=== PATIENT | male | born 1935 | race Caucasian/White ===

== ENCOUNTER 2021-05-04 17:54 | Inpatient (IN) | payer OTHER, MEDICARE ==
[~2021-05-04 17:54] MED LIST: Iopamidol-370 76% 500 ML 1 ML ONE
[2021-05-04 18:32] LABS: #Eosinphils 0.1 thou/uL (0.0-0.7); #Lymphocytes 2.2 thou/uL (1.20-3.40); #Monocytes 0.6 thou/uL (0.11-0.59); #Neutrophils 3.7 thou/uL (1.40-6.50); %Basophils 0.6 % (0.0-1.0); %Lymphocytes 32.9 % (21.0-51.0); %Monocytes 9.4 % (0.0-10.0); %Neutrophils 55.1 % (42.0-75.0); Hemoglobin 11.6 g/dL (14.0-18.0); Mean Corpuscular HGB CONC 34.9 g/dL (32.0-36.0); Mean Corpuscular Hemoglobin 33.4 pg (27.0-31.0); Mean Corpuscular Volume 95.8 fL (78.0-98.0); Platelet Count 274 thou/uL (130-400); RBC Distribution Width 12.8 % (11.5-14.5); Red Blood Cell (RBC) Count 3.48 mill/uL (4.70-6.10); White Blood Cell (WBC) Count 6.6 thou/uL (4.8-10.8)
[2021-05-04 18:58] LABS: ALT (SGPT) 15 U/L (8-55); AST (SGOT) 26 U/L (5-34); Albumin 3.9 g/dL (3.4-4.8); Alkaline Phosphatase 50 U/L (40-110); Anion Gap 17 mmol/L (10-20); BUN (Urea Nitrogen) 13 mg/dL (8.4-25.7); Bilirubin, Total 0.7 mg/dL (0.2-1.2); Calc. Creatinine Clearance 0 mL/min (70-130); Calcium 7.2 mg/dL (7.8-10.44); Carbon Dioxide 26 mmol/L (23-31); Chloride 101 mmol/L (98-107); Globulin 2.3 g/dL (2.4-3.5); Glucose 218 mg/dL (83-110); Protein, Total 6.2 g/dL (5.8-8.1); Sodium 141 mmol/L (136-145)
[2021-05-04 19:06] LABS: Potassium 2.9 mmol/L (3.5-5.1)
[2021-05-04 19:17] LABS: CKMB 1.3 ng/mL (0-6.6)
[2021-05-04] MEDS ORDERED: Potassium Chloride 20 MEQ TAB ONE (19:42)
[2021-05-04] MEDS ORDERED: Aspirin Chewable 81 MG TAB ONE (19:51)
[2021-05-04] MEDS ORDERED: Potassium Chloride 20 MEQ TAB PO SCH (20:00)
[2021-05-04] MEDS ORDERED: Pot Chloride/Pot Bicarb/Cit Ac 25 mEq Effervescent Tablet ONE ×2 (20:30)
[2021-05-04] MEDS ORDERED: Potassium Bicarbonate/Cit Ac 20 MEQ TAB PO SCH (20:45)
[2021-05-04 22:11] LABS: Troponin I 0.025 ng/mL (< 0.028)
[2021-05-04] MEDS ORDERED: Labetalol HCl 100 MG/20 ML VIAL SLOW IVP PRN (22:54)
[2021-05-04] MEDS ORDERED: Ondansetron PF 4 MG/2 ML Vial IVP PRN (22:54)
[2021-05-04] MEDS ORDERED: Acetaminophen 325 MG TAB PO PRN (22:54)
[2021-05-04] MEDS ORDERED: hydrALAZINE 20 MG/ML VIAL SLOW IVP PRN (22:54)
[2021-05-04] MEDS ORDERED: Dextrose 5% in Water 1,000 ML IV PRN (23:00)
[2021-05-04] MEDS ORDERED: Dextrose 50% Abboject 50 ML SYRINGE SLOW IVP PRN (23:00)
[2021-05-04] MEDS ORDERED: HumaLOG 300 UNITS/3 ML VIAL SC PRN (23:00)
[2021-05-05 01:22] LABS: Troponin I 0.026 ng/mL (< 0.028)
[2021-05-05 04:22] VITALS: BMI 23.1
[2021-05-05 05:17] LABS: #Eosinphils 0.1 thou/uL (0.0-0.7); #Lymphocytes 1.8 thou/uL (1.20-3.40); #Monocytes 0.5 thou/uL (0.11-0.59); #Neutrophils 3.3 thou/uL (1.40-6.50); %Basophils 0.5 % (0.0-1.0); %Eosinophils 2.4 % (0.0-10.0); %Lymphocytes 30.6 % (21.0-51.0); %Monocytes 8.9 % (0.0-10.0); %Neutrophils 57.6 % (42.0-75.0); Hemoglobin 10.8 g/dL (14.0-18.0); Mean Corpuscular HGB CONC 34.9 g/dL (32.0-36.0); Mean Corpuscular Hemoglobin 33.4 pg (27.0-31.0); Mean Corpuscular Volume 95.8 fL (78.0-98.0); Mean Platelet Volume 6.9 fL (7.4-10.4); Platelet Count 236 thou/uL (130-400); RBC Distribution Width 12.8 % (11.5-14.5); Red Blood Cell (RBC) Count 3.24 mill/uL (4.70-6.10); White Blood Cell (WBC) Count 5.8 thou/uL (4.8-10.8)
[2021-05-05 05:39] LABS: Anion Gap 15 mmol/L (10-20); BUN (Urea Nitrogen) 11 mg/dL (8.4-25.7); Calc. Creatinine Clearance 61 mL/min (70-130); Carbon Dioxide 27 mmol/L (23-31); Cardiac Risk 4.9 (Less than 4.5); Chloride 104 mmol/L (98-107); Cholesterol 157 mg/dl (< 200 Desired); Glucose 131 mg/dL (83-110); HDL Cholesterol 32 mg/dL (>60 Neg Risk); LDL Cholesterol, Calculated 82 mg/dL; Magnesium Less than 0.6 mg/dL (1.6-2.6); Sodium 143 mmol/L (136-145); Triglycerides 215 mg/dL (Less than 150)
[2021-05-05 05:40] LABS: Hemoglobin A1c 8.8 % (4.0-6.0)
[2021-05-05 05:42] LABS: Potassium 2.8 mmol/L (3.5-5.1)
[2021-05-05] MEDS ORDERED: Potassium Chloride 20 MEQ TAB PO SCH (06:15)
[2021-05-05] MEDS ORDERED: Magnesium Sulfate 4 GM in Sodium Chloride 0.9% 250 ML 250 ML IVPB SCH (06:30)
[2021-05-05] MEDS: Potassium Chloride 20 MEQ TAB PO SCH ×2 (07:40→11:59)
[2021-05-05] MEDS ORDERED: OXcarbazepine 300 MG TAB PO SCH (09:00)
[2021-05-05] MEDS: Famotidine 20 MG TAB PO SCH ×2 (09:21→20:25)
[2021-05-05] MEDS: Aspirin 81 mg Enteric Coated Tablet PO SCH (09:21)
[2021-05-05] MEDS: Lantus 1000 UNITS/10 ML VIAL SC SCH ×2 (09:42→20:26)
[2021-05-05] MEDS: Potassium Chloride 20 MEQ in Premix Bag 1 BAG IVPB SCH ×2 (10:42→12:40)
[2021-05-05 11:53] LABS: Anion Gap 13 mmol/L (10-20); BUN (Urea Nitrogen) 10 mg/dL (8.4-25.7); Calc. Creatinine Clearance 59 mL/min (70-130); Calcium 7.2 mg/dL (7.8-10.44); Carbon Dioxide 29 mmol/L (23-31); Chloride 107 mmol/L (98-107); Glucose 107 mg/dL (83-110); Magnesium 1.8 mg/dL (1.6-2.6); Potassium 3.5 mmol/L (3.5-5.1); Sodium 145 mmol/L (136-145)
[2021-05-05] MEDS: HumaLOG 300 UNITS/3 ML VIAL SC PRN (17:44)
[2021-05-05] MEDS: Atorvastatin Calcium 40 MG TAB PO SCH (20:23)
[2021-05-05] MEDS: OXcarbazepine 300 MG TAB PO SCH (20:24)
[2021-05-05] MEDS: Carvedilol 6.25 MG TAB PO SCH (20:24)
[2021-05-05] MEDS: Docusate 100 MG CAP PO SCH (20:37)
[2021-05-05] MEDS ORDERED: Apixaban 5 MG TAB PO SCH (21:00)
[2021-05-06 05:28] LABS: #Eosinphils 0.2 thou/uL (0.0-0.7); #Lymphocytes 1.4 thou/uL (1.20-3.40); #Monocytes 0.5 thou/uL (0.11-0.59); #Neutrophils 5.8 thou/uL (1.40-6.50); %Basophils 0.1 % (0.0-1.0); %Eosinophils 2.9 % (0.0-10.0); %Lymphocytes 17.2 % (21.0-51.0); %Monocytes 6.2 % (0.0-10.0); %Neutrophils 73.6 % (42.0-75.0); Hemoglobin 11.3 g/dL (14.0-18.0); Mean Corpuscular Hemoglobin 33.2 pg (27.0-31.0); Mean Corpuscular Volume 97.5 fL (78.0-98.0); Platelet Count 280 thou/uL (130-400); RBC Distribution Width 12.9 % (11.5-14.5); Red Blood Cell (RBC) Count 3.42 mill/uL (4.70-6.10); White Blood Cell (WBC) Count 7.9 thou/uL (4.8-10.8)
[2021-05-06 05:49] LABS: Anion Gap 12 mmol/L (10-20); BUN (Urea Nitrogen) 7 mg/dL (8.4-25.7); Calc. Creatinine Clearance 67 mL/min (70-130); Calcium 7.4 mg/dL (7.8-10.44); Carbon Dioxide 25 mmol/L (23-31); Chloride 109 mmol/L (98-107); Glucose 117 mg/dL (83-110); Magnesium 1.4 mg/dL (1.6-2.6); Potassium 3.5 mmol/L (3.5-5.1); Sodium 142 mmol/L (136-145)
[2021-05-06] MEDS: Famotidine 20 MG TAB PO SCH (09:49)
[2021-05-06] MEDS: Amlodipine 5 MG TAB PO SCH (09:49)
[2021-05-06] MEDS: Multivit, Therapeutic 1 TAB PO SCH (09:50)
[2021-05-06] MEDS: Glimepiride 4 MG TAB PO SCH (09:51)
[2021-05-06] MEDS: Aspirin 81 mg Enteric Coated Tablet PO SCH (09:51)
[2021-05-06] MEDS: Spironolactone 25 MG TAB PO SCH (09:51)
[2021-05-06] MEDS: Tamsulosin HCl 0.4 MG CAP PO SCH (09:51)
[2021-05-06] MEDS: Carvedilol 6.25 MG TAB PO SCH ×2 (09:51→22:21)
[2021-05-06] MEDS: Lantus 1000 UNITS/10 ML VIAL SC SCH ×2 (09:52→22:12)
[2021-05-06] MEDS: Fenofibrate Nanocrystallized 145 MG TAB PO SCH (09:52)
[2021-05-06] MEDS: Docusate 100 MG CAP PO SCH ×2 (09:55→22:21)
[2021-05-06] MEDS: OXcarbazepine 300 MG TAB PO SCH ×2 (10:01→22:22)
[2021-05-06] MEDS: HumaLOG 300 UNITS/3 ML VIAL SC PRN (12:11)
[2021-05-06] MEDS ORDERED: ALPRAZolam 0.25 MG TAB PO PRN (12:33)
[2021-05-06] MEDS ORDERED: Lorazepam 2 MG/ML VIAL ONE (12:39)
[2021-05-06] MEDS ORDERED: Lorazepam 2 MG/ML VIAL SLOW IVP SCH (12:45)
[2021-05-06] MEDS ORDERED: Haloperidol Lactate 5 MG/ML VIAL IM SCH (13:00)
[2021-05-06] MEDS ORDERED: Lisinopril 10 MG TAB PO SCH (15:15)
[2021-05-06] MEDS ORDERED: HumaLOG 300 UNITS/3 ML VIAL SC PRN (21:16)
[2021-05-06] MEDS ORDERED: Dextrose 5% in Water 1,000 ML IV PRN (21:16)
[2021-05-06] MEDS ORDERED: Dextrose 50% Abboject 50 ML SYRINGE SLOW IVP PRN (21:16)
[2021-05-06] MEDS: Atorvastatin Calcium 40 MG TAB PO SCH (22:20)
[2021-05-07 05:22] LABS: #Eosinphils 0.2 thou/uL (0.0-0.7); #Lymphocytes 1.2 thou/uL (1.20-3.40); #Monocytes 0.4 thou/uL (0.11-0.59); #Neutrophils 3.6 thou/uL (1.40-6.50); %Basophils 0.5 % (0.0-1.0); %Lymphocytes 22.9 % (21.0-51.0); %Monocytes 6.6 % (0.0-10.0); Hemoglobin 11.6 g/dL (14.0-18.0); Mean Corpuscular HGB CONC 35.4 g/dL (32.0-36.0); Mean Corpuscular Hemoglobin 34.3 pg (27.0-31.0); Mean Platelet Volume 6.8 fL (7.4-10.4); Platelet Count 270 thou/uL (130-400); RBC Distribution Width 12.8 % (11.5-14.5); Red Blood Cell (RBC) Count 3.38 mill/uL (4.70-6.10); White Blood Cell (WBC) Count 5.4 thou/uL (4.8-10.8)
[2021-05-07 05:45] LABS: Anion Gap 13 mmol/L (10-20); BUN (Urea Nitrogen) 6 mg/dL (8.4-25.7); Calc. Creatinine Clearance 77 mL/min (70-130); Calcium 7.5 mg/dL (7.8-10.44); Carbon Dioxide 22 mmol/L (23-31); Chloride 110 mmol/L (98-107); Glucose 87 mg/dL (83-110); Magnesium 1.3 mg/dL (1.6-2.6); Potassium 3.4 mmol/L (3.5-5.1); Sodium 142 mmol/L (136-145)
[2021-05-07] MEDS: Lisinopril 10 MG TAB PO SCH (08:36)
[2021-05-07] MEDS: Fenofibrate Nanocrystallized 145 MG TAB PO SCH (08:36)
[2021-05-07] MEDS: OXcarbazepine 300 MG TAB PO SCH ×2 (08:36→20:40)
[2021-05-07] MEDS: Amlodipine 5 MG TAB PO SCH (08:36)
[2021-05-07] MEDS: Aspirin 81 mg Enteric Coated Tablet PO SCH (08:37)
[2021-05-07] MEDS: Multivit, Therapeutic 1 TAB PO SCH (08:37)
[2021-05-07] MEDS: Glimepiride 4 MG TAB PO SCH ×2 (08:37→08:55)
[2021-05-07] MEDS: Tamsulosin HCl 0.4 MG CAP PO SCH (08:38)
[2021-05-07] MEDS: Carvedilol 6.25 MG TAB PO SCH ×2 (08:38→20:40)
[2021-05-07] MEDS: Docusate 100 MG CAP PO SCH ×2 (08:38→20:40)
[2021-05-07] MEDS: Lantus 1000 UNITS/10 ML VIAL SC SCH ×2 (08:42→21:01)
[2021-05-07] MEDS: Spironolactone 25 MG TAB PO SCH (08:44)
[2021-05-07] MEDS ORDERED: Calcium Gluc 4.6 MEQ/10 ML (100 MG/ML) SLOW IVP SCH (12:00)
[2021-05-07] MEDS ORDERED: Potassium Chloride 20 MEQ TAB PO SCH (12:00)
[2021-05-07] MEDS: HumaLOG 300 UNITS/3 ML VIAL SC PRN ×2 (12:10→17:04)
[2021-05-07] MEDS: Magnesium 2 GM/50 ML 2 GM in Premix Bag 1 BAG IVPB SCH ×2 (12:11→15:06)
[2021-05-07] MEDS ORDERED: Haloperidol Lactate 5 MG/ML VIAL IM PRN (17:51)
[2021-05-07] MEDS: Atorvastatin Calcium 40 MG TAB PO SCH (20:39)
[2021-05-07] MEDS ORDERED: traZODone HCl 50 MG TAB PO SCH (21:00)
[2021-05-08] MEDS: Fenofibrate Nanocrystallized 145 MG TAB PO SCH (08:19)
[2021-05-08] MEDS: Glimepiride 4 MG TAB PO SCH (08:19)
[2021-05-08] MEDS: Docusate 100 MG CAP PO SCH (08:20)
[2021-05-08] MEDS: Multivit, Therapeutic 1 TAB PO SCH (08:20)
[2021-05-08] MEDS: Tamsulosin HCl 0.4 MG CAP PO SCH (08:20)
[2021-05-08] MEDS: Carvedilol 6.25 MG TAB PO SCH (08:21)
[2021-05-08] MEDS: Spironolactone 25 MG TAB PO SCH (08:21)
[2021-05-08] MEDS: Amlodipine 5 MG TAB PO SCH (08:21)
[2021-05-08] MEDS: Aspirin 81 mg Enteric Coated Tablet PO SCH (08:21)
[2021-05-08] MEDS: Lisinopril 10 MG TAB PO SCH (08:21)
[2021-05-08] MEDS: Lantus 1000 UNITS/10 ML VIAL SC SCH ×2 (08:24→08:33)
[2021-05-08] MEDS: OXcarbazepine 300 MG TAB PO SCH (08:27)
[2021-05-08] MEDS: HumaLOG 300 UNITS/3 ML VIAL SC PRN (11:21)
[2021-05-08 11:47] VITALS: BP 188/79; TEMP 98.1
== END 2021-05-08 16:29 | disposition home health service (06) | DRG 65 ==
LOC: ERS 17:54 → 2SE 21:23 → OBSVTOIN 05-05 10:17
PROVIDERS: ADMIT Internal Medicine; ATTEND Internal Medicine
PROC: 4A10X4Z Monitoring of Central Nervous Electrical Activity, External Approach (ICD-10-PCS; principal; 2021-05-05)
DX: I63.9 Cerebral infarction, unspecified (principal); I16.1 Hypertensive emergency; I10 Essential (primary) hypertension; G30.9 Alzheimer's disease, unspecified; F02.80 Dementia in other diseases classified elsewhere, unspecified severity, without behavioral disturbance, psychotic disturbance, mood disturbance, and anxiety; E11.9 Type 2 diabetes mellitus without complications; I48.0 Paroxysmal atrial fibrillation; G40.909 Epilepsy, unspecified, not intractable, without status epilepticus; E87.6 Hypokalemia; R77.8 Other specified abnormalities of plasma proteins; W19.XXXA Unspecified fall, initial encounter; E83.42 Hypomagnesemia; E83.51 Hypocalcemia; Z79.4 Long term (current) use of insulin; Z88.0 Allergy status to penicillin; Z79.82 Long term (current) use of aspirin; Y92.89 Other specified places as the place of occurrence of the external cause; Z79.899 Other long term (current) drug therapy; Z88.8 Allergy status to other drugs, medicaments and biological substances
CPT/HCPCS: 36415; 36416; 70450; 70496; 70498; 72125; 74230; 80048; 80053; 80061; 82553; 83036; 83735; 84484; 85025; 93005; 93306; 95712; 95819; 95957; 96374; 96375; G0378; J0360; J1630; J1815; J2001; J2060; J3475; J3480; J7050; Q9967

== ENCOUNTER 2021-06-01 18:55 | Inpatient (IN) | payer MEDICARE ==
[2021-06-01] MEDS ORDERED: Ondansetron ODT 4 MG TAB ONE (19:13)
[2021-06-01] MEDS ORDERED: Morphine 4 MG/ML VIAL ONE (19:13)
[2021-06-01] MEDS ORDERED: hydrALAZINE 20 MG/ML VIAL ONE (19:13)
[2021-06-01 19:34] LABS: #Basophils 0.1 thou/uL (0.0-0.2); #Lymphocytes 1.8 thou/uL (1.20-3.40); #Monocytes 0.6 thou/uL (0.11-0.59); #Neutrophils 4.8 thou/uL (1.40-6.50); %Basophils 0.8 % (0.0-1.0); %Eosinophils 0.5 % (0.0-10.0); %Lymphocytes 24.6 % (21.0-51.0); %Monocytes 7.7 % (0.0-10.0); %Neutrophils 66.4 % (42.0-75.0); Hemoglobin 12.4 g/dL (14.0-18.0); Mean Corpuscular HGB CONC 34.9 g/dL (32.0-36.0); Mean Corpuscular Hemoglobin 33.7 pg (27.0-31.0); Mean Corpuscular Volume 96.6 fL (78.0-98.0); Mean Platelet Volume 7.1 fL (7.4-10.4); Platelet Count 253 thou/uL (130-400); RBC Distribution Width 13.1 % (11.5-14.5); Red Blood Cell (RBC) Count 3.68 mill/uL (4.70-6.10); White Blood Cell (WBC) Count 7.3 thou/uL (4.8-10.8)
[2021-06-01 19:54] LABS: ALT (SGPT) 12 U/L (8-55); AST (SGOT) 24 U/L (5-34); Albumin 4.2 g/dL (3.4-4.8); Alkaline Phosphatase 44 U/L (40-110); Anion Gap 16 mmol/L (10-20); BUN (Urea Nitrogen) 10 mg/dL (8.4-25.7); Bilirubin, Total 0.7 mg/dL (0.2-1.2); Calc. Creatinine Clearance 0 mL/min (70-130); Calcium 7.5 mg/dL (7.8-10.44); Carbon Dioxide 22 mmol/L (23-31); Chloride 107 mmol/L (98-107); Globulin 2.2 g/dL (2.4-3.5); Glucose 154 mg/dL (83-110); Lipase 12 U/L (8-78); Protein, Total 6.4 g/dL (5.8-8.1); Sodium 142 mmol/L (136-145)
[2021-06-01 20:10] LABS: Potassium 2.9 mmol/L (3.5-5.1)
[2021-06-01 20:15] LABS: CKMB 1.7 ng/mL (0-6.6)
[2021-06-01] MEDS ORDERED: Aspirin Chewable 81 MG TAB ONE (20:37)
[2021-06-01] MEDS ORDERED: Ondansetron PF 4 MG/2 ML Vial ONE (20:43)
[2021-06-01] MEDS ORDERED: Potassium Chloride 40 MEQ in Sodium Chloride 0.9% 250 ML 250 ML IVPB SCH (20:45)
[2021-06-01 22:34] LABS: Bacteria/HPF None Seen HPF (None Seen); Bilirubin Negative (Negative); Blood, Urine Negative (Negative); Clarity Clear (Clear); Glucose, Urine (Dipstick) 50 mg/dL (Negative); Ketone, Urine Negative (Negative); Leukocyte Negative Leu/uL (Negative); Nitrite Negative (Negative); Protein, Urine (Dipstick) 70 mg/dL (Neg-Trace); RBC/HPF 0-3 HPF (0-3); Specific Gravity, Urine 1.023 (1.002-1.036); Squamous Epithelial None Seen HPF (0-3); Urobilinogen Normal mg/dL (Less than 2); WBC/HPF 0-3 HPF (0-3); pH, Urine 8.5 (5.0-9.0)
[2021-06-02] MEDS ORDERED: Dextrose 50% Abboject 50 ML SYRINGE SLOW IVP PRN (00:16)
[2021-06-02] MEDS ORDERED: Dextrose 5% in Water 1,000 ML IV PRN (00:16)
[2021-06-02] MEDS ORDERED: HumaLOG 300 UNITS/3 ML VIAL SC PRN ×2 (00:16)
[2021-06-02] MEDS ORDERED: Electrolyte Replacement Protocol 1 EACH FS SCH (00:30)
[2021-06-02] MEDS ORDERED: Morphine 2 MG/ML VIAL ONE (00:35)
[2021-06-02 00:42] LABS: SARS-CoV-2 NAA Rapid Test Not Detected (NotDetected)
[2021-06-02 01:05] VITALS: BMI 29.0
[2021-06-02] MEDS ORDERED: Labetalol HCl 100 MG/20 ML VIAL ONE (02:13)
[2021-06-02] MEDS: Labetalol HCl 100 MG/20 ML VIAL SLOW IVP SCH ×2 (02:17→20:51)
[2021-06-02] MEDS ORDERED: Magnesium Sulfate 4 GM in Sodium Chloride 0.9% 250 ML 250 ML IVPB SCH ×2 (02:30→08:30)
[2021-06-02] MEDS ORDERED: cefTRIAXone\\ROCEPHIN 1 GM VIAL ONE (02:41)
[2021-06-02] MEDS: cefTRIAXone\\ROCEPHIN 1 GM in Sodium Chloride 0.9% 100 ML IVPB SCH (02:49)
[2021-06-02] MEDS: Sodium Chloride 0.9% 1,000 ML IV SCH ×3 (02:50→22:28)
[2021-06-02] MEDS ORDERED: metroNIDAZOLE 500 MG/100 ML BAG ONE ×2 (03:01→09:08)
[2021-06-02] MEDS: metroNIDAZOLE 500 MG in Premix Bag 1 BAG IVPB SCH ×3 (03:09→22:16)
[2021-06-02] MEDS ORDERED: hydrALAZINE 20 MG/ML VIAL ONE ×2 (06:48→11:32)
[2021-06-02] MEDS: hydrALAZINE 20 MG/ML VIAL SLOW IVP PRN ×3 (07:13→16:17)
[2021-06-02 07:27] LABS: Troponin I 0.055 ng/mL (< 0.028)
[2021-06-02] MEDS ORDERED: Morphine 4 MG/ML VIAL ONE (07:39)
[2021-06-02] MEDS: Morphine 2 MG/ML VIAL SLOW IVP PRN (07:48)
[2021-06-02] MEDS ORDERED: Ondansetron PF 4 MG/2 ML Vial IVP PRN (08:30)
[2021-06-02] MEDS ORDERED: Ondansetron ODT 4 MG TAB PO PRN (08:30)
[2021-06-02] MEDS ORDERED: Enoxaparin Sodium 30 MG/0.3 ML SYRINGE ONE (08:34)
[2021-06-02 08:38] LABS: #Lymphocytes 1.3 thou/uL (1.20-3.40); #Monocytes 1.1 thou/uL (0.11-0.59); #Neutrophils 11.3 thou/uL (1.40-6.50); %Basophils 0.2 % (0.0-1.0); %Eosinophils 0.3 % (0.0-10.0); %Lymphocytes 9.8 % (21.0-51.0); %Monocytes 7.9 % (0.0-10.0); %Neutrophils 81.9 % (42.0-75.0); Hemoglobin 12.2 g/dL (14.0-18.0); Mean Corpuscular HGB CONC 34.3 g/dL (32.0-36.0); Mean Corpuscular Hemoglobin 33.1 pg (27.0-31.0); Mean Corpuscular Volume 96.4 fL (78.0-98.0); Mean Platelet Volume 6.8 fL (7.4-10.4); Platelet Count 279 thou/uL (130-400); RBC Distribution Width 13.3 % (11.5-14.5); Red Blood Cell (RBC) Count 3.68 mill/uL (4.70-6.10); White Blood Cell (WBC) Count 13.8 thou/uL (4.8-10.8)
[2021-06-02 08:59] LABS: Anion Gap 16 mmol/L (10-20); BUN (Urea Nitrogen) 9 mg/dL (8.4-25.7); Calc. Creatinine Clearance 68 mL/min (70-130); Calcium 7.4 mg/dL (7.8-10.44); Carbon Dioxide 19 mmol/L (23-31); Chloride 110 mmol/L (98-107); Glucose 152 mg/dL (83-110); Magnesium 1.5 mg/dL (1.6-2.6); Sodium 142 mmol/L (136-145)
[2021-06-02] MEDS ORDERED: Nitroglycerin 2% Ointment 1 INCH/1 GM Packet ONE (08:59)
[2021-06-02] MEDS ORDERED: Ondansetron PF 4 MG/2 ML Vial ONE (08:59)
[2021-06-02] MEDS ORDERED: Enoxaparin Sodium 30 MG/0.3 ML SYRINGE SC SCH (09:00)
[2021-06-02 09:03] LABS: Phosphorus 1.2 mg/dL (2.3-4.7)
[2021-06-02] MEDS ORDERED: Potassium Phosphate 22 MMOL in Sodium Chloride 0.9% 250 ML 250 ML IVPB SCH ×2 (09:15→09:45)
[2021-06-02] MEDS ORDERED: Magnesium 2 GM/50 ML 2 GM in Premix Bag 1 BAG IVPB SCH (09:15)
[2021-06-02] MEDS ORDERED: Magnesium Sulfate 2 GM in Sodium Chloride 0.9% 250 ML 250 ML IVPB SCH (09:30)
[2021-06-02] MEDS ORDERED: Potassium Chloride 8 MEQ in Sodium Chloride 0.9% 100 ML IVPB SCH (09:30)
[2021-06-02] MEDS ORDERED: Potassium Phosphate 30 MMOL in Sodium Chloride 0.9% 250 ML 250 ML IVPB SCH (09:30)
[2021-06-02] MEDS ORDERED: MD-Gastroview 120 ML BOT ONE (10:11)
[2021-06-02] MEDS ORDERED: OLANZapine 10 MG VIAL IM SCH ×2 (10:45→18:30)
[2021-06-02] MEDS ORDERED: Magnesium 2 GM/50 ML BAG (IN WATER) ONE (10:49)
[2021-06-02] MEDS: Nitroglycerin 2% Ointment 1 INCH/1 GM Packet TOP SCH (18:22)
[2021-06-02] MEDS ORDERED: Sterile Water 10 ML VIAL FS PRN (18:45)
[2021-06-02 19:29] LABS: Anion Gap 14 mmol/L (10-20); BUN (Urea Nitrogen) 8 mg/dL (8.4-25.7); Calc. Creatinine Clearance 66 mL/min (70-130); Calcium 7.5 mg/dL (7.8-10.44); Carbon Dioxide 25 mmol/L (23-31); Chloride 112 mmol/L (98-107); Glucose 142 mg/dL (83-110); Potassium 3.3 mmol/L (3.5-5.1); Sodium 148 mmol/L (136-145)
[2021-06-02] MEDS ORDERED: Potassium Chloride 40 MEQ in Sodium Chloride 0.9% 250 ML 250 ML IVPB SCH (21:00)
[2021-06-03] MEDS: Nitroglycerin 2% Ointment 1 INCH/1 GM Packet TOP SCH ×3 (01:42→17:23)
[2021-06-03] MEDS: cefTRIAXone\\ROCEPHIN 1 GM in Sodium Chloride 0.9% 100 ML IVPB SCH (01:43)
[2021-06-03] MEDS: metroNIDAZOLE 500 MG in Premix Bag 1 BAG IVPB SCH ×3 (04:27→17:22)
[2021-06-03] MEDS: hydrALAZINE 20 MG/ML VIAL SLOW IVP PRN ×3 (04:41→11:24)
[2021-06-03 04:58] LABS: #Eosinphils 0.1 thou/uL (0.0-0.7); #Lymphocytes 1.8 thou/uL (1.20-3.40); #Monocytes 0.6 thou/uL (0.11-0.59); #Neutrophils 7.1 thou/uL (1.40-6.50); %Basophils 0.4 % (0.0-1.0); %Eosinophils 1.1 % (0.0-10.0); %Lymphocytes 18.3 % (21.0-51.0); %Monocytes 6.1 % (0.0-10.0); %Neutrophils 74.1 % (42.0-75.0); Mean Corpuscular Hemoglobin 32.9 pg (27.0-31.0); Mean Corpuscular Volume 99.7 fL (78.0-98.0); Mean Platelet Volume 6.8 fL (7.4-10.4); Platelet Count 216 thou/uL (130-400); RBC Distribution Width 13.5 % (11.5-14.5); Red Blood Cell (RBC) Count 3.63 mill/uL (4.70-6.10); White Blood Cell (WBC) Count 9.6 thou/uL (4.8-10.8)
[2021-06-03 05:15] LABS: Anion Gap 15 mmol/L (10-20); BUN (Urea Nitrogen) 9 mg/dL (8.4-25.7); Calc. Creatinine Clearance 67 mL/min (70-130); Calcium 7.4 mg/dL (7.8-10.44); Carbon Dioxide 22 mmol/L (23-31); Chloride 114 mmol/L (98-107); Glucose 141 mg/dL (83-110); Magnesium 2.1 mg/dL (1.6-2.6); Potassium 3.6 mmol/L (3.5-5.1); Sodium 147 mmol/L (136-145)
[2021-06-03] MEDS ORDERED: hydrALAZINE 20 MG/ML VIAL SLOW IVP SCH (05:45)
[2021-06-03] MEDS: Enoxaparin Sodium 40 MG/0.4 ML SYRINGE SC SCH (08:14)
[2021-06-03] MEDS: Sodium Chloride 0.9% 1,000 ML IV SCH (09:28)
[2021-06-03] MEDS: Metoprolol Tartrate 5 MG/5 ML VIAL IVP SCH ×4 (10:43→22:27)
[2021-06-03] MEDS ORDERED: PHOS-NAK 1 PKT PACK PO SCH ×2 (11:00→15:00)
[2021-06-03] MEDS ORDERED: Dextrose 5% w/ 20 mEq KCl 1,000 ML IV SCH (11:00)
[2021-06-03 11:03] LABS: CKMB 1.5 ng/mL (0-6.6)
[2021-06-03] MEDS ORDERED: Potassium Phosphate 22 MMOL in Sodium Chloride 0.9% 250 ML 250 ML IVPB SCH (12:45)
[2021-06-03] MEDS: Morphine 2 MG/ML VIAL SLOW IVP PRN ×2 (12:49→22:27)
[2021-06-03] MEDS: Lorazepam 2 MG/ML VIAL SLOW IVP PRN (15:09)
[2021-06-03 15:48] LABS: CKMB 1.2 ng/mL (0-6.6)
[2021-06-03] MEDS ORDERED: Sterile Water 10 ML VIAL FS PRN (16:45)
[2021-06-03] MEDS: OLANZapine 10 MG VIAL IM PRN (17:22)
[2021-06-04] MEDS: cefTRIAXone\\ROCEPHIN 1 GM in Sodium Chloride 0.9% 100 ML IVPB SCH (01:26)
[2021-06-04] MEDS: Metoprolol Tartrate 5 MG/5 ML VIAL IVP SCH ×6 (01:26→23:54)
[2021-06-04] MEDS: Nitroglycerin 2% Ointment 1 INCH/1 GM Packet TOP SCH ×3 (01:27→17:05)
[2021-06-04] MEDS: metroNIDAZOLE 500 MG in Premix Bag 1 BAG IVPB SCH ×3 (01:28→19:17)
[2021-06-04] MEDS: OLANZapine 10 MG VIAL IM PRN (01:28)
[2021-06-04] MEDS: hydrALAZINE 20 MG/ML VIAL SLOW IVP PRN ×3 (04:51→21:02)
[2021-06-04] MEDS: Lorazepam 2 MG/ML VIAL SLOW IVP PRN (04:52)
[2021-06-04] MEDS ORDERED: hydrALAZINE 20 MG/ML VIAL SLOW IVP SCH (05:45)
[2021-06-04] MEDS ORDERED: cloNIDine 0.2mg/24 Hour PATCH TD SCH (09:00)
[2021-06-04] MEDS ORDERED: Labetalol HCl 100 MG/20 ML VIAL SLOW IVP PRN (09:12)
[2021-06-04] MEDS ORDERED: Dextrose 5% w/ 20 mEq KCl 1,000 ML IV SCH ×2 (09:15→09:16)
[2021-06-04] MEDS: Enoxaparin Sodium 40 MG/0.4 ML SYRINGE SC SCH (10:00)
[2021-06-04] MEDS ORDERED: Furosemide 40 MG/4 ML VIAL SLOW IVP SCH (10:45)
[2021-06-04 12:27] LABS: #Eosinphils 0.1 thou/uL (0.0-0.7); #Lymphocytes 0.9 thou/uL (1.20-3.40); #Monocytes 0.6 thou/uL (0.11-0.59); #Neutrophils 7.3 thou/uL (1.40-6.50); %Basophils 0.1 % (0.0-1.0); %Eosinophils 1.5 % (0.0-10.0); %Lymphocytes 10.3 % (21.0-51.0); %Monocytes 6.2 % (0.0-10.0); %Neutrophils 81.9 % (42.0-75.0); Hemoglobin 9.6 g/dL (14.0-18.0); Mean Corpuscular HGB CONC 33.6 g/dL (32.0-36.0); Mean Corpuscular Hemoglobin 34.1 pg (27.0-31.0); Mean Platelet Volume 7.6 fL (7.4-10.4); Platelet Count 171 thou/uL (130-400); RBC Distribution Width 13.1 % (11.5-14.5); Red Blood Cell (RBC) Count 2.82 mill/uL (4.70-6.10); White Blood Cell (WBC) Count 8.9 thou/uL (4.8-10.8)
[2021-06-04 12:45] LABS: Lactic Acid 1.1 mmol/L (0.5-2.2)
[2021-06-04] MEDS ORDERED: Metoprolol Tartrate 5 MG/5 ML VIAL IVP SCH ×2 (13:46→14:00)
[2021-06-04] MEDS ORDERED: Nitroglycerin 2% Ointment 1 INCH/1 GM Packet TOP SCH (14:00)
[2021-06-04 14:02] LABS: #Eosinphils 0.1 thou/uL (0.0-0.7); #Lymphocytes 0.9 thou/uL (1.20-3.40); #Monocytes 0.6 thou/uL (0.11-0.59); #Neutrophils 8.1 thou/uL (1.40-6.50); %Basophils 0.3 % (0.0-1.0); %Eosinophils 0.9 % (0.0-10.0); %Lymphocytes 9.4 % (21.0-51.0); %Monocytes 6.3 % (0.0-10.0); %Neutrophils 83.1 % (42.0-75.0); Hemoglobin 11.8 g/dL (14.0-18.0); Mean Corpuscular HGB CONC 33.9 g/dL (32.0-36.0); Mean Corpuscular Hemoglobin 33.7 pg (27.0-31.0); Mean Corpuscular Volume 99.5 fL (78.0-98.0); Mean Platelet Volume 7.1 fL (7.4-10.4); Platelet Count 216 thou/uL (130-400); RBC Distribution Width 13.1 % (11.5-14.5); White Blood Cell (WBC) Count 9.8 thou/uL (4.8-10.8)
[2021-06-04] MEDS ORDERED: Metoprolol Tartrate 5 MG/5 ML VIAL ONE (14:06)
[2021-06-04 14:10] LABS: Lactic Acid 1.4 mmol/L (0.5-2.2)
[2021-06-04 14:13] LABS: Anion Gap 13 mmol/L (10-20); BUN (Urea Nitrogen) 9 mg/dL (8.4-25.7); Calc. Creatinine Clearance 69 mL/min (70-130); Calcium 8.1 mg/dL (7.8-10.44); Carbon Dioxide 23 mmol/L (23-31); Chloride 108 mmol/L (98-107); Glucose 221 mg/dL (83-110); Magnesium 1.7 mg/dL (1.6-2.6); Potassium 3.5 mmol/L (3.5-5.1); Sodium 140 mmol/L (136-145)
[2021-06-04 14:23] LABS: Phosphorus 1.3 mg/dL (2.3-4.7)
[2021-06-04] MEDS ORDERED: Spironolactone 25 MG TAB PO SCH (16:00)
[2021-06-04] MEDS ORDERED: Amlodipine 10 MG TAB PO SCH (16:00)
[2021-06-04] MEDS ORDERED: niCARdipine 25 MG in Sodium Chloride 0.9% 250 ML 250 ML IVPB SCH (19:15)
[2021-06-04] MEDS: Dextrose 5% w/ 20 mEq KCl 1,000 ML IV SCH (20:49)
[2021-06-04] MEDS: Carvedilol 6.25 MG TAB PO SCH (20:50)
[2021-06-04] MEDS: Docusate 100 MG CAP PO SCH (20:50)
[2021-06-04] MEDS: Lantus 1000 UNITS/10 ML VIAL SC SCH (20:51)
[2021-06-04] MEDS: OXcarbazepine 300 MG TAB PO SCH (20:52)
[2021-06-04] MEDS ORDERED: Atorvastatin Calcium 40 MG TAB PO SCH (21:00)
[2021-06-05] MEDS: cefTRIAXone\\ROCEPHIN 1 GM in Sodium Chloride 0.9% 100 ML IVPB SCH (00:59)
[2021-06-05] MEDS: Nitroglycerin 2% Ointment 1 INCH/1 GM Packet TOP SCH ×2 (00:59→09:27)
[2021-06-05] MEDS: metroNIDAZOLE 500 MG in Premix Bag 1 BAG IVPB SCH ×2 (02:19→09:41)
[2021-06-05] MEDS: hydrALAZINE 20 MG/ML VIAL SLOW IVP PRN (02:19)
[2021-06-05 04:49] LABS: #Eosinphils 0.3 thou/uL (0.0-0.7); #Lymphocytes 1.5 thou/uL (1.20-3.40); #Monocytes 0.5 thou/uL (0.11-0.59); #Neutrophils 5.9 thou/uL (1.40-6.50); %Basophils 0.4 % (0.0-1.0); %Eosinophils 3.9 % (0.0-10.0); %Lymphocytes 17.8 % (21.0-51.0); %Monocytes 6.5 % (0.0-10.0); %Neutrophils 71.4 % (42.0-75.0); Hemoglobin 10.7 g/dL (14.0-18.0); Mean Corpuscular HGB CONC 34.2 g/dL (32.0-36.0); Mean Corpuscular Volume 99.5 fL (78.0-98.0); Mean Platelet Volume 7.2 fL (7.4-10.4); Platelet Count 217 thou/uL (130-400); RBC Distribution Width 12.9 % (11.5-14.5); Red Blood Cell (RBC) Count 3.14 mill/uL (4.70-6.10); White Blood Cell (WBC) Count 8.2 thou/uL (4.8-10.8)
[2021-06-05] MEDS: Metoprolol Tartrate 5 MG/5 ML VIAL IVP SCH (04:55)
[2021-06-05 05:29] LABS: Anion Gap 14 mmol/L (10-20); BUN (Urea Nitrogen) 10 mg/dL (8.4-25.7); Calc. Creatinine Clearance 69 mL/min (70-130); Calcium 8.3 mg/dL (7.8-10.44); Carbon Dioxide 22 mmol/L (23-31); Chloride 110 mmol/L (98-107); Glucose 151 mg/dL (83-110); Magnesium 1.7 mg/dL (1.6-2.6); Potassium 3.1 mmol/L (3.5-5.1); Sodium 143 mmol/L (136-145)
[2021-06-05] MEDS ORDERED: Glimepiride 4 MG TAB PO SCH (08:00)
[2021-06-05] MEDS ORDERED: Tamsulosin HCl 0.4 MG CAP PO SCH (09:00)
[2021-06-05] MEDS ORDERED: Amlodipine 5 MG TAB PO SCH (09:00)
[2021-06-05] MEDS ORDERED: Aspirin 81 mg Enteric Coated Tablet PO SCH (09:00)
[2021-06-05] MEDS ORDERED: Multivit, Therapeutic 1 TAB PO SCH (09:00)
[2021-06-05] MEDS ORDERED: Potassium Chloride 20 MEQ TAB PO SCH (09:00)
[2021-06-05] MEDS ORDERED: Lisinopril 20 MG TAB PO SCH (09:00)
[2021-06-05] MEDS ORDERED: Spironolactone 25 MG TAB PO SCH (09:00)
[2021-06-05] MEDS ORDERED: Magnesium 2 GM/50 ML 2 GM in Premix Bag 1 BAG IVPB SCH (09:00)
[2021-06-05] MEDS ORDERED: Fenofibrate Nanocrystallized 145 MG TAB PO SCH (09:00)
[2021-06-05] MEDS: Enoxaparin Sodium 40 MG/0.4 ML SYRINGE SC SCH (09:28)
[2021-06-05] MEDS: Lantus 1000 UNITS/10 ML VIAL SC SCH (09:28)
[2021-06-05] MEDS: OXcarbazepine 300 MG TAB PO SCH (09:40)
[2021-06-05] MEDS: Docusate 100 MG CAP PO SCH (09:40)
[2021-06-05] MEDS: Carvedilol 6.25 MG TAB PO SCH (09:40)
[2021-06-05] MEDS: Lorazepam 2 MG/ML VIAL SLOW IVP SCH ×2 (09:41→14:56)
[2021-06-05] MEDS: PHOS-NAK 1 PKT PACK PO SCH ×2 (09:41→14:55)
[2021-06-05] MEDS ORDERED: hydrALAZINE 20 MG/ML VIAL SLOW IVP SCH (10:00)
[2021-06-05] MEDS ORDERED: Labetalol HCl 100 MG/20 ML VIAL SLOW IVP SCH (10:00)
[2021-06-05 10:03] VITALS: BP 217/87; TEMP 98.8
[2021-06-05] MEDS ORDERED: hydrALAZINE 20 MG/ML VIAL SLOW IVP PRN (10:56)
[2021-06-05] MEDS: Dextrose 5% w/ 20 mEq KCl 1,000 ML IV SCH (11:36)
[2021-06-05] MEDS ORDERED: Nitroglycerin 2% Ointment 1 INCH/1 GM Packet TOP SCH (17:00)
== END 2021-06-05 17:00 | disposition hospice, home (50) | DRG 871 ==
LOC: ERS 18:55 → ERHOLD 20:50 → 2NO 06-02 20:02 → IMCU/EMU 06-05 11:10
PROVIDERS: ADMIT Internal Medicine; ATTEND Internal Medicine
DX: A41.9 Sepsis, unspecified organism (principal); G93.41 Metabolic encephalopathy; K56.609 Unspecified intestinal obstruction, unspecified as to partial versus complete obstruction; I16.1 Hypertensive emergency; Z51.5 Encounter for palliative care; G30.9 Alzheimer's disease, unspecified; Z20.822 Contact with and (suspected) exposure to COVID-19; F02.80 Dementia in other diseases classified elsewhere, unspecified severity, without behavioral disturbance, psychotic disturbance, mood disturbance, and anxiety; E11.9 Type 2 diabetes mellitus without complications; I10 Essential (primary) hypertension; K52.9 Noninfective gastroenteritis and colitis, unspecified; I48.0 Paroxysmal atrial fibrillation; E87.6 Hypokalemia; G40.909 Epilepsy, unspecified, not intractable, without status epilepticus; R53.81 Other malaise; E83.42 Hypomagnesemia; E83.39 Other disorders of phosphorus metabolism; Z79.01 Long term (current) use of anticoagulants; Z88.0 Allergy status to penicillin; Z88.8 Allergy status to other drugs, medicaments and biological substances; Z79.4 Long term (current) use of insulin; Z79.899 Other long term (current) drug therapy
CPT/HCPCS: 36415; 36416; 71045; 74018; 74177; 74250; 80048; 80053; 81003; 81015; 82553; 83605; 83690; 83735; 83880; 84100; 84443; 84484; 85025; 87040; 87086; 93005; J0360; J0696; J1650; J1815; J1940; J2060; J2270; J2358; J2405; J3475; J3480; J3490; J7050; Q0162; Q9963; Q9967; U0002; U0005